=== PATIENT | male | born 1985 ===

== ENCOUNTER 2017-08-11 09:10 | Outpatient (CLI) | payer BC ==
--- NOTE | 2017-08-11 09:25 | XRay Report ---
RIGHT KNEE: History: Knee pain after trauma. The bony architecture is intact without evidence of fracture or dislocation. No significant soft tissue abnormality is seen. IMPRESSION: Normal right knee.
== END 2017-08-11 09:11 | disposition home or self-care (01) ==
LOC: SPVIMAG 09:10
PROVIDERS: ATTEND Orthopaedic Surgery
DX: M25.561 Pain in right knee (principal)